=== PATIENT | male | born 1960 | race Caucasian/White ===

== ENCOUNTER 2016-06-06 17:14 | Emergency (ER) | payer OTHER ==
[~2016-06-06] VITALS: Ht 172.7 cm; Wt 84.1 kg
[2016-06-06 17:23] VITALS: BP 130/88; PULSE 72; RESP 16; O2SAT 96
--- NOTE | 2016-06-06 19:02 | ED.REPORT ---
HPI-Head Prob / Injury Date of Service Jun 06, 2016 ED Provider: Dariusz Rhodes MD Pt is a healthy 56 year old male who presents to the ED with complaints of falling and hitting his head immediately prior to arrival. Pt reports that he was working on his boat when he slipped on ice and hit the back of his head on the ground. He reports no loss of consciousness or nausea or vomiting following the fall. He has no other complaints. Pt reports that he has not been taking any blood thinners. Nursing Notes Stated Complaint: FELL AND HIT HEAD Chief Complaint: Head, Face, Neck Trauma Nursing Notes Reviewed: Yes Allergies: Uncoded Allergies: NEOSPORIN (Allergy, Intermediate, Rash, 06/06/16) General Time Seen by Provider: 19:07 Chief Complaint Blunt head trauma Hx Obtained From: Patient Arrived By: Walk-in Onset Occurred: Just prior to arrival Symptom Duration: Since onset Severity: Current: Moderate Severity: Maximum: Moderate Similar Sx Previous: Yes Past Medical History Past Medical History Heart murmur Review of Systems Constitutional: Denies: Chills, Fever, Malaise, Weakness - generalized GI: Denies: Abdominal pain, Nausea, Vomiting Musculoskeletal: Denies: Back pain, Extremity pain, Neck pain Skin: Denies Bruising Neurologic: Denies: Change LOC, Dizziness, Headache, Seizure, Syncope, Weakness Complete sys rev & neg: except as marked. Physical Exam Initial Vital Signs Vital Signs (First) Date Time Temp Pulse Resp B/P Pulse Ox O2 Delivery O2 Flow Rate FiO2 06/06/16 17:23 36.2 72 16 130/88 96 Room Air Initial VS: Reviewed Respiratory: Breath sounds normal, Clear to auscultation, No respiratory distress Skin: Warm, Dry, No cyanosis Psychiatric: Mood/affect normal, Behavior normal, Normal thought content General/Constitutional: Awake, Alert, Well appearing, Well developed, Well nourished, Cooperative Head / Eyes: Normocephalic, PERRL, No nystagmus Superficial abrasion about left occiput, shallow laceration, about 6mm long. Extends just to the subcutaneous tissue. No active bleeding. ENT: Atraumatic, Airway patent, Pharynx NL Neck: Atraumatic, Supple, Full range of motion Neurologic: Oriented X3, Speech NL, No motor deficits, No sensory deficits, CN II - XII intact, Cerebellar NL Cardiovascular: Regular rhythm, Heart sounds NL Heart Sounds / Murmur: Positive: Systolic murmur present.. (I/, soft) Re-Eval/Medical Decision Med Decision/Clinical Course The patient presents to the emergency department for evaluation after falling and striking his head on ice. Upon arrival he is afebrile and hemodynamically stable with a normal neurologic examination. He is not on blood thinners, he did not lose consciousness, he has been behaving normally and has had no nausea or vomiting. At this time, I see no indication to obtain neuro imaging. He has a superficial abrasion/laceration to the occipital scalp that extends just to the very superficial subcutaneous tissue. I do not feel that sutures are jacque are indicated. The wound was copiously irrigated and a clean dressing was applied. He will leave the dressing in place for 24 hours before showering. He will return right away for bleeding, vomiting, confusion, headache or any other concerning signs or symptoms. The patient verbalized understanding and agreement with the plan and was discharged in good condition. His tetanus status is up-to-date. Source of Hx: Old records Re-Evaluation/Progress : Time of Eval: 19:16 Re-Evaluation/Progress Note: Pt is rechecked. He is informed of his diagnosis and the plan to discharge him at this time. Return precautions given. He understands and agrees, all questions are addressed. Counseled Regarding: Diagnosis, When/why to return to ED Discharge & Departure Primary Impression: Scalp laceration Encounter type: initial encounter Qualified Code: S01.01XA - Laceration without foreign body of scalp, initial encounter Additional Impression: Fall from ground level Disposition: Home All VS Reviewed: Yes Condition: Stable Patient Instructions: Laceration (ED) Additional Instructions: Thank you for seeking care in the emergency department today. I am sorry that you fell today, but thankfully no dangerous injuries were sustained. Keep your laceration clean, being careful to not disrupt the scab forming. Follow up with your primary care provider next week. Return to the emergency department with any dizziness, loss of consciousness, vomiting or any other new or worsening symptoms. Referrals: Di Hernandez ND, Eliza (PCP) Scribe Attestation Portions of this note were transcribed by Nery Mejia. I, Dr. Rhodes personally performed the history, physical exam and medical decision-making; I reviewed and confirmed the accuracy of the information in the transcribed note. Signed by: Margaret Deleon, 06/06/2016 19:25 copies to: Di Hernandez ND, LAc [place], Beck O MD Jun 06, 2016 19:02 KESHIA MEJIA Jun 06, 2016 19:17
[2016-06-06 19:27] VITALS: BP 130/88; PULSE 72; RESP 16; O2SAT 96
== END 2016-06-06 19:27 | disposition home or self-care (01) ==
LOC: SED 17:14
DX: S01.01XA Laceration without foreign body of scalp, initial encounter (principal); W00.0XXA Fall on same level due to ice and snow, initial encounter; Y93.89 Activity, other specified; Y92.89 Other specified places as the place of occurrence of the external cause; Y99.8 Other external cause status